=== PATIENT | male | born 1960 | race Caucasian/White ===

== ENCOUNTER 2021-09-15 11:11 | Emergency (ER) | payer OTHER, SELFPAY ==
--- NOTE | ~2021-09-15 | CT_ITS ---
EXAMINATION: CT brain wo con DATE: 09/15/2021 12:41 INDICATION: Transient alteration of awareness. TECHNIQUE: Computed tomography (CT) of the head was performed without intravenous contrast. The mA wa s adjusted according to patient size. Iterative reconstruction technique was employed. Exam dose: 99 8.61 mGy-cm total exam DLP. COMPARISON: None FINDINGS: Examination is limited due to patient motion. There is an approximately 3 cm mass suggested in the right occipital lobe with prominent adjacent srikanth ma, effacement of the right occipital horn. No other intracranial mass lesion is evident. No intracranial hemorrhage. No midline shift is detected. No subdural or epidural hematoma. Orbital contents are unremarkable. Paranasal sinuses and mastoid air cells are unremarkable. No apparent fracture or bone destruction of the cranial vault.. Primary or metastatic brain neoplasm is suspected. IMPRESSION: Approximately 3 cm right occipital mass with adjacent edema and associated effacement of the right occipital horn, most consistent with primary or metastatic brain neoplasm Reviewed, dictated and finalized at [facility] Reviewed, dictated and finalized at [facility]. IMPRESSION: Approximately 3 cm right occipital mass with adjacent edema and as sociated effacement of the right occipital horn, most consistent with primary o r metastatic brain neoplasm
--- NOTE | ~2021-09-15 | US_ITS ---
US abdomen limited DATE: 09/15/2021 14:07 INDICATION: New pancreatic cancer. Nausea and vomiting. TECHNIQUE: Real-time imaging of liver, pancreas, gallbladder areas COMPARISON: 09/15/2021 CT abdomen pelvis FINDINGS: The pancreas is obscured by bowel gas. Heterogeneous echotexture of the liver with evidence of multiple masses suggesting metastatic disease . The gallbladder is distended. Gallbladder wall thickness measures 2.6 mm, within upper limits of norm al. There are multiple stones as well as sludge in the gallbladder. Negative sonographic Rogers's sig n. The patient is however reportedly on pain medications which The common bile duct measures 9 mm. IMPRESSION: Hepatic metastatic disease Cholelithiasis, gallbladder sludge Borderline gallbladder wall thickening Pancreas is obscured. Reviewed, dictated and finalized at [facility] Reviewed, dictated and finalized at [facility].
--- NOTE | ~2021-09-15 | CT_ITS ---
EXAMINATION: CT abdomen pelvis wo con DATE: 09/15/2021 12:40 INDICATION: Recent diagnosis of pancreatic cancer, possible pancreatic metastases TECHNIQUE: Computed tomography (CT) of the abdomen and pelvis was performed without intravenous contr ast. Automated exposure control and iterative reconstruction technique were employed. Exam dose: 998 .61 mGy-cm total exam DLP. COMPARISON: None. FINDINGS: There is prominent discoid atelectasis and/or scarring in the lower lung zones. There are s cattered bilateral pulmonary masses, the largest in the middle lobe, measuring up to 9 mm, likely due to pulmonary metastases. Prevascular and right paratracheal mediastinal lymphadenopathy. Normal heart size. There is small pericardial effusion. Moderate sliding hiatal hernia. There is extensive hepatic metastatic disease with lesions scattered throughout both lobes and caudat e process. Distended gallbladder with multiple stones, mild gallbladder wall thickening No bile duct dilatation is evident. Normal splenic size. There is some enlargement of the pancreas left midline involving the proximal body which may be due t o prostate cancer. Bilateral adrenal hypertrophy. No renal mass lesion or urinary tract calculus or hydroureteronephrosis is evident. Calcification of the abdominal aorta and iliac arteries; no abdominal aortic aneurysm. No intraperito alejandro or retroperitoneal or pelvic mass lesion or adenopathy. Prostate enlargement. The urinary bladder is unremarkable. There is mild free fluid in the dependent pelvis. Normal appendix. No bowel obstruction or intraperitoneal free air. Small fat-containing abdominal hernia. Mild to moderate anterior wedge compression fracture deformity of L2. No suspicious osteolytic or osteoblastic lesions are noted. Probable bone island of T11 vertebral bod y. IMPRESSION: Probable pancreatic mass lesion involving the proximal body of the pancreas, with extens simona hepatic metastases, probable pulmonary metastases Right paratracheal and prevascular lymphadenopathy. Small pericardial effusion Moderately prominent hiatal hernia Cholelithiasis, distended gallbladder, thickened gallbladder wall Prostate enlargement Reviewed, dictated and finalized at [facility]. Reviewed, dictated and finalized at [facility]. IMPRESSION: Probable pancreatic mass lesion involving the proximal body of the pancreas, with extensive hepatic metastases, probable pulmonary metastases Right paratracheal and prevascular lymphadenopathy. Small pericardial effusion Moderately prominent hiatal hernia Cholelithiasis, distended gallbladder, thickened gallbladder wall Prostate enlargement
[2021-09-15 11:16] VITALS: BP 144/88; PULSE 120; RESP 20; O2SAT 100
--- NOTE | 2021-09-15 11:19 | ECG_ITS ---
Measurements Intervals [place] Rate: 117 P: 50 NE: 132 QRS: 66 QRSD: 94 T: 8 QT: 286 QTc: 400 Interpretive Statements SINUS TACHYCARDIA POSSIBLE LEFT ATRIAL ENLARGEMENT LOW QRS VOLTAGE IN LIMB LEADS BORDERLINE T WAVE ABNORMALITY- INFERIOR LEADS ABNORMAL ECG Electronically Signed On 09-15-2021 15:59:36 CDT by Daniel Rodriguez D.O.
[2021-09-15 11:42] LABS: Basophils Percent Auto 0.1 % (0.2-1.2); Hematocrit 45.6 % (37.0-47.0); Hemoglobin 14.7 g/dL (12.0-15.0); Immature Granulocyte Absolute 0.38 K/mm3 (0.00-0.031); Immature Granulocyte Percent A 1.2 % (0-0.5); Lymphocytes Absolute Auto 7.35 K/mm3 (0.9-3.2); Lymphocytes Percent Auto 23.8 % (18.3-44.2); Mean Corpuscular HGB Conc 32.2 g/dl (32-36); Mean Corpuscular Hemoglobin 27.1 pg (26-34); Mean Corpuscular Volume 84.1 fl (80-100); Mean Platelet Volume 11.4 fl (7.4-10.4); Monocytes Absolute Auto 1.3 K/mm3 (0.1-0.6); Monocytes Percent Auto 4.1 % (2.6-8.5); Neutrophils Absolute Auto 21.9 K/mm3 (1.3-6.7); Neutrophils Percent Auto 70.8 % (45.5-73.1); Platelet Count Result 252 k/mm3 (150-375); Red Blood Count 5.42 M/mm3 (4.6-6.20); Red Cell Distribution Width 14.5 % (11.5-14.5); White Blood Count 30.9 K/mm3 (4.5-10.0)
[2021-09-15 11:53] LABS: Alanine Aminotransferase 127 U/L (6-50); Albumin Level 2.9 g/dL (3.5-5.1); Alkaline Phosphatase 334 U/L (38-126); Anion Gap 9 mmol/L (8-16); Aspartate Amino Transferase 205 U/L (17-59); Bilirubin,Total 2.6 mg/dL (0.2-1.3); Blood Urea Nitrogen 77 mg/dL (9-20); Calcium 8.2 mg/dL (8.4-10.2); Carbon Dioxide 25 mmol/L (22-30); Chloride 95 mmol/L (98-107); Estimated CRCL calculation 52 ml/min; Estimated Glomerular Filt Rate > 60; Glucose 268 mg/dL (65-110); Potassium 5.7 mmol/L (3.4-5.0); Sodium 129 mmol/L (137-145)
[2021-09-15 12:00] LABS: INR 1.2; Prothrombin Time 14.4 Seconds (11.1-14.7)
[2021-09-15 12:01] LABS: Partial Thromboplastin Time 26.9 SECONDS (22.3-36.8)
[2021-09-15] MEDS: LACTATED RINGERS 1,000 ML 999 ML IV CONT (12:07)
[2021-09-15] MEDS: ONDANSETRON INJ 4 MG/2 ML VIAL IV PUSH (12:07)
[2021-09-15] MEDS: MORPHINE SULFATE (*CRX) 4 MG/ML INJ IV PUSH ×3 (12:07→16:01)
[2021-09-15 12:16] LABS: Appearance Urine Clear (Clear); Bilirubin Urine 1+ (Negative); Blood Urine Negative (Negative); Color Urine Yellow (Yellow); Glucose Urine UA Negative (Negative); Ketones Urine Negative (Negative); Leukocyte Esterase Ur Negative LEU/UL (Negative); Nitrate Urine Negative (Negative); Protein Urine Negative (Negative)
[2021-09-15 12:17] LABS: Add Urine Microscopic? YES
[2021-09-15 12:23] LABS: Ammonia < 9 umol/L (9-30)
[2021-09-15 12:26] LABS: Lipase 305 U/L (23-300)
[2021-09-15 12:27] LABS: Bacteria Urine Trace /hpf; Mucus Urine Rare /lpf; RBC Urine 0-2 /hpf (0-2); Squamous Epithelial Cell Urine Rare /hpf (Few); WBC Urine 0-3 /hpf
--- NOTE | 2021-09-15 12:33 | ED.WEAKNESS ---
HPI - Weakness General Chief complaint: Weakness Stated complaint: altered LOC Time Seen by Provider: 09/15/21 11:33 History of Present Illness HPI Narrative: 61-year-old male with recent diagnosis of pancreatic cancer at an outside hospital in [place] presents here after her sister noticed that he has been getting increasingly worse, she states that the last couple weeks he has not been taking much p.o. intake, and also has been progressively more tired, weak, with several bouts of nausea, abdominal pain, and does not seem to be like himself. Related Data Home Medications Medication Instructions Recorded Confirmed amlodipine 10 mg-benazepril 40 mg 10 cap PO DAILY 09/15/21 09/15/21 capsule clorazepate dipotassium 7.5 mg 7.5 tablet PO DAILY 09/15/21 09/15/21 tablet doxycycline hyclate 20 mg tablet 20 tablet PO DAILY 09/15/21 09/15/21 glipizide 5 mg tablet 5 tablet PO DAILY 09/15/21 09/15/21 metformin 1,000 mg tablet 1,000 tablet PO TID 09/15/21 09/15/21 metronidazole 0.75 % topical gel 1 ea topical DAILY 09/15/21 09/15/21 oxycodone 10 mg tablet 1 tablet PO Q4-6H PRN Pain 09/15/21 09/15/21 rosuvastatin 10 mg tablet 10 tablet PO DAILY 09/15/21 09/15/21 tapentadol 50 mg tablet (Nucynta) 50 tablet PO DAILY 09/15/21 09/15/21 Allergies Allergy/AdvReac Type Severity Reaction Status Date / Time No Known Allergies Allergy Verified 09/15/21 12:01 Review of Systems Review of Systems: CONST: Weight loss HEENT: No sore throat C/V: No chest pain RESP: No cough GI: Reports abdominal pain, nausea, vomiting[, diarrhea] : No dysuria. M/S: No joint pain. SKIN: No rash. NEURO: [No headache or focal numbness or weakness] PSYCH: Some episodes of confusion PMFSH Past Medical History Medical History (Updated 09/15/21 @ 15:26 by Ana Abarca MD) Pancreatic cancer Social History Social History (Updated 09/15/21 @ 15:25 by Ana Abarca MD) Alcohol intake: former Exam Narrative: EXAMINATION OF ORGAN SYSTEMS/BODY AREAS: Constitutional: Vital signs per nursing GENERAL: Appears uncomfortable in the bed HEAD: Temporal wasting EYES: EOMI, conjunctiva normal ENT: Hearing grossly intact LUNGS: Nonlabored breathing. HEART: Tachycardic ABD: [Soft], very mildly diffusely [tender to palpation] EXT: Normal range of motion SKIN: [No rashes or lesions.] NEURO: Alert, answering questions, moving all extremities equally PSYCH: Normal affect Course Course Emergency Course: 61-year-old male with newly diagnosed pancreatic cancer presenting with generalized weakness and increasing confusion over the last couple weeks, vital signs tachycardic, exam shows cachectic patient who does appear confused, some abdominal tenderness. No obvious focal neurologic deficit. Differential diagnosis includes pancreatic cancer with metastasis, liver failure with encephalopathy, infection, dehydration, electrolyte abnormalities. Dr. Alcantar accepting hospitalist at [facility], he advised starting IV steroids at this time and [facility] aware. D/w patient and his sister at bedside, agreeable to this plan. Vital Signs Vital signs: Vital Signs Pulse Rate 120 H 09/15/21 11:16 Respiratory Rate 20 09/15/21 11:16 Blood Pressure 144/88 H 09/15/21 11:16 Pulse Oximetry 100 09/15/21 11:16 Oxygen Delivery Room Air 09/15/21 11:16 Pulse Rate 102 H 09/15/21 14:35 Respiratory Rate 18 09/15/21 14:35 Blood Pressure 145/83 H 09/15/21 14:35 Pulse Oximetry 98 09/15/21 14:35 Oxygen Delivery Room Air 09/15/21 11:16 Transfer Transfer rationale: higher level of care neurosurgery, hem/onc Accepting physician: Dr. Alcantar MDM - Weakness Lab Data Result diagrams: 09/15/21 11:29 09/15/21 11:29 Labs: Lab Results 09/15/21 09/15/21 09/15/21 Range/Units 11:29 11:29 11:29 WBC 30.9 H (4.5-10.0) K/mm3 RBC 5.42 (4.6-6.20) M/mm3 Hgb 14.7 (12.0-1
[2021-09-15] MEDS: SODIUM CHLORIDE 0.9% IV 1,000 ML 999 ML IV CONT (13:06)
[2021-09-15 13:15] VITALS: BP 157/70; PULSE 116; RESP 18; O2SAT 98
[2021-09-15] MEDS: levETIRAcetam 500MG/NACL 100ML 500 MG/100 ML BAG 400 MG IVPB (14:13)
[2021-09-15 14:24] VITALS: BP 138/89; PULSE 118; RESP 18; O2SAT 98
--- NOTE | 2021-09-15 14:24 | PC.NURSE ---
PT gave verbal consent to transfer to [facility], sister at bedside signed paperwork. Pt accepted to room 4107.
[2021-09-15 14:35] VITALS: BP 145/83; PULSE 102; RESP 18; O2SAT 98
--- NOTE | 2021-09-15 16:02 | PC.NURSE ---
PT medicated per request of family prior to trip. Bedside report given to Doyle Shrestha DIV[facility]ero [facility] updated on new medications and departure from er.
== END 2021-09-15 16:02 | disposition short-term general hospital (02) ==
PROVIDERS: Emergency Provider Emergency Medicine
DX: C25.1 Malignant neoplasm of body of pancreas (principal); C78.7 Secondary malignant neoplasm of liver and intrahepatic bile duct; G93.9 Disorder of brain, unspecified; E11.9 Type 2 diabetes mellitus without complications; I10 Essential (primary) hypertension; Z79.84 Long term (current) use of oral hypoglycemic drugs; R00.0 Tachycardia, unspecified; R94.31 Abnormal electrocardiogram [ECG] [EKG]; K44.9 Diaphragmatic hernia without obstruction or gangrene; K80.20 Calculus of gallbladder without cholecystitis without obstruction; N40.0 Benign prostatic hyperplasia without lower urinary tract symptoms
CPT/HCPCS: 36415; 70450; 74176; 76705; 80053; 81001; 82140; 83690; 85025; 85610; 85730; 87040; 87077; 87186; 93005; 96361; 96365; 96367; 96375; 96376; 99285; J1100; J1953; J2270; J2405; J2543; J7030; J7120